=== PATIENT | female | born 1985 | race Caucasian/White ===

== ENCOUNTER 2023-12-30 09:07 | Day surgery (SDC) | payer OTHER ==
[~2023-12-30] VITALS: Ht 160 cm; Wt 97.5 kg
[2023-12-30] MEDS ORDERED: fentaNYL citrate 0.05 MG/ML VIAL ONE (09:57)
[2023-12-30] MEDS ORDERED: MIDAZOLAM 2 MG/2 ML VIAL ONE (09:57)
[2023-12-30] MEDS: MIDAZOLAM 2 MG/2 ML VIAL IVP ONE (10:08)
== END 2023-12-30 11:25 | disposition home or self-care (01) ==
LOC: MOR 09:07 → MMU 09:08 → MOR 11:25
PROVIDERS: ATTEND Internal Medicine Gastroenterology
DX: R10.13 Epigastric pain (principal); K21.9 Gastro-esophageal reflux disease without esophagitis; K29.70 Gastritis, unspecified, without bleeding; K31.89 Other diseases of stomach and duodenum; E78.5 Hyperlipidemia, unspecified; Z79.899 Other long term (current) drug therapy; Z98.890 Other specified postprocedural states
CPT/HCPCS: 36415; 43239; 86677; J2250; J3010